=== PATIENT | male | born 1955 | race Caucasian/White ===

== ENCOUNTER → 2018-06-14 | Outpatient (CLI) | END | disposition home or self-care (01) ==

== ENCOUNTER → 2018-08-27 | Outpatient (CLI) | END | disposition home or self-care (01) ==

== ENCOUNTER 2019-06-25 19:07 | Inpatient (IN) | payer MEDICARE, OTHER ==
[~2019-06-25] VITALS: Ht 165.1 cm; Wt 70.9 kg
[~2019-06-25 19:07] MED LIST: ACET325T33 PO; ASPI325T32 PO; ATOR20TA65 PO; BACL10TA PO; BISA5TAB6 PO; CHLO473M4 MT; DOCU-159 PO; ENOX40DI2 SC; FAMO20TA18 PO; FURO40TA4 PO; GABA100C14 PO; GLIP-160 PO; HYDR-3672 PO; HYDR-842 PO; IBUP-1561 PO; IPRA3AMP29 HHN; LANT3I SC; METF100010 PO; NA P133E3 PR; NOVO3I SC; PERCOCET PO; PHEN177S47 MT; POLY17PO6 PO; ZOLP5TAB PO
[2019-06-25] MEDS ORDERED: ACETAMINOPHEN 325 MG TAB PO STA (19:21)
[2019-06-25] MEDS ORDERED: SODIUM CHLORIDE 0.9% 1L BAG IV* STA (19:21)
[2019-06-25 19:24] VITALS: Ht 165.1 cm; Wt 70.9 kg
[2019-06-25] MEDS ORDERED: VANCOMYCIN 1 GM (PMX) 250 ML IVPB ONE (19:30)
[2019-06-25] MEDS ORDERED: LEVOFLOXACIN 750MG/D5W (PMX) 150 ML IVPB ONE (19:30)
--- NOTE | 2019-06-25 19:32 | ERD ---
ER Documentation Chief Complaint Chief Complaint BIB RA from [facility] NF: fever wo relief p tylenol; hx UTI p 7d abx HPI 63-year-old male history of hypertension, diabetes mellitus type 2, CVA with right residual weakness, CABG and aortic valve replacement presents to the ED via ambulance from [facility] for evaluation of a 1 day history of fever. Patient just completed a 7-day course of antibiotics for urinary tract infection. Patient denies chest pain, palpitations, shortness of breath or cough. No abdominal pain, nausea, vomiting, diarrhea or constipation. No headache or neck pain. ROS All systems reviewed and are negative except as per history of present illness. Medications Home Meds Active Scripts Zolpidem Tartrate (Ambien Jovon) 5 Mg Tablet, 5 MG PO HS PRN for INSOMNIA for 28 Days, TAB Prov:TELMA GRIFFITHS MD 11/19/16 Polyethylene Glycol* (Miralax*) 17 Gm Powd.pack, 8.5 GM PO DAILY for 28 Days Prov:TELMA GRIFFITHS MD 11/19/16 Phenol (Sore Throat Jewell) 177 Ml Jewell, 2 SPRAY MT Q4 PRN for SORE THROAT for 28 Days, SPRAY Prov:TELMA GRIFFITHS MD 11/19/16 Oxycodone Hcl/Acetaminophen (Percocet) 1 Tab Tab, 1 TAB PO Q4H PRN for PAIN for 28 Days, TAB Prov:TELMA GRIFFITHS MD 11/19/16 Na Phos,M-B/Na Phos,Di-Ba (Kym Ready To Use Enema) 133 Ml Enema, 133 ML NC DAILY PRN for CONSTIPATION for 14 Days, ENEMA Prov:TELMA GRIFFITHS MD 11/19/16 Ipratropium-Albuterol (Ipratropium-Albuterol) 0.5-3 Mg/3 Ml Ampul.neb, 3 ML HHN Q4H RESP THERAPY PRN for SHORTNESS OF BREATH for 28 Days Prov:TELMA GRIFFITHS MD 11/19/16 Insulin Glargine* (Lantus*) 100 Unit/Ml Soln, 15 UNIT SC HS for 28 Days Prov:TELMA GRIFFITHS MD 11/19/16 Insulin Aspart* (Novolog Insulin Pen*) 100 Unit/Ml Soln, 4 UNIT SC WITH MEALS for 28 Days Prov:TELMA GRIFFITHS MD 11/19/16 Hydralazine Hcl* (Hydralazine Hcl*) 50 Mg Tab, 50 MG PO Q8 for 30 Days, TAB Prov:TELMA GRIFFITHS MD 11/19/16 Furosemide* (Furosemide*) 40 Mg Tablet, 40 MG PO DAILY@06 for 28 Days, TAB Prov:TELMA GRIFFITHS MD 11/19/16 Famotidine* (Famotidine*) 20 Mg Tablet, 20 MG PO DAILY for 28 Days, TAB Prov:TELMA GRIFFITHS MD 11/19/16 Enoxaparin Sodium* (Enoxaparin Sodium*) 40 Mg/0.4 Ml Syringe, 40 MG SC DAILY for 28 Days Prov:TELMA GRIFFITHS MD 11/19/16 Chlorhexidine Gluconate (Peridex) 473 Ml Mouthwash, 15 ML MT Q12 for 28 Days, BOTTLE Prov:TELMA GRIFFITHS MD 11/19/16 Bisacodyl* (Bisacodyl*) 5 Mg Tablet.dr, 5 MG PO BID for 28 Days Prov:TELMA GRIFFITHS MD 11/19/16 Atorvastatin Calcium (Atorvastatin Calcium) 20 Mg Tablet, 20 MG PO HS for 28 Days, TAB Prov:TELMA GRIFFITHS MD 11/19/16 Aspirin (Aspir-Renée) 325 Mg Tablet.dr, 325 MG PO DAILY for 28 Days Prov:TELMA GRIFFITHS MD 11/19/16 Acetaminophen* (Tylenol*) 325 Mg Tablet, 650 MG PO Q6H PRN for PAIN AND OR ELEVATED TEMP for 7 Days, TAB Prov:TELMA GRIFFITHS MD 11/19/16 Reported Medications Hydroxyzine Hcl* (Atarax*) 25 Mg Tab, 10 MG PO PC MEALS BEDTIME, TAB 11/07/16 Glipizide XL* (Glipizide XL*) 5 Mg Tabsr, 5 MG PO DAILY, TAB 11/07/16 Gabapentin* (Gabapentin*) 100 Mg Capsule, 100 MG PO QHS, #90 CAP 11/07/16 Ibuprofen* (Motrin*) 400 Mg Tab, 400 MG PO Q4 PRN for PAIN, TAB 08/20/15 Docusate Sodium* (Docusate Sodium*) 100 Mg Capsule, 100 MG PO DAILY, CAP 08/20/15 Baclofen* (Baclofen*) 10 Mg Tablet, 10 MG PO DAILY, TAB 08/20/15 Metformin Hcl* (Metformin Hcl*) 1,000 Mg Tablet, 1000 MG PO BID, TAB 08/20/15 Allergies Allergies: Coded Allergies: Penicillins (Verified Allergy, Intermediate, HIVES, 11/07/16) PMhx/Soc Reviewed in chart. As per HPI. History of Surgery: Yes (s/p aortic valve replacement for critical aortic stenosis) Anesthesia Reaction: No Hx Neurological Disorder: Yes (Stroke w R sided paralysis) Hx Respiratory Disorders: No Hx Cardiac Disorders: Yes (HTN,HLP, CAD, AORTIC STENOSIS) Hx Psychiatric Problems: No Hx Miscellaneous Medical Probl: Yes (HTN, dyslipidemia, CAD, bradycardia, CVAx2) Hx Alcohol Use: No Hx Substance Use: No Hx Tobacco Use: No Smoking Status: Never smoker FmHx No family history relevant to presenting complaint Physical Exam Vitals Vital Signs Date Temp Pulse Resp B/P (MAP) Pulse Ox O2 O2 Flow FiO2 Time Delivery Rate 06/25/19 98.9 55 18 100/45 100 Room Air 23:06 (63) 06/25/19 85 23 130/57 100 Room Air 21:00 (81) 06/25/19 102.2 19:36 06/25/19 102.2 99 20 170/80 99 19:24 (110) Physical Exam Const: Alert, moderate distress. Head: Atraumatic Eyes: Normal Conjunctiva ENT: Normal External Ears, Nose and Mouth. Neck: Full range of motion. No meningismus. No JVD. Resp: Breath sounds equal bilaterally without rales rhonchi or wheezes. Cardio: Regular rate and rhythm, 3/6 systolic murmur. Chest Wall: Status post median sternotomy. Nontender. Abd: Soft, non tender, non distended. Normal bowel sounds Skin: No petechiae or rashes. No decubiti. Back: No midline or flank tenderness Ext: No cyanosis, or edema Neur: Awake and alert. Right hemiparesis. Psych: Normal Mood and Affect Result Diagram: 06/25/19193306/25/191933 Results 24 hrs Laboratory Tests Test 06/25/19 19:30 06/25/19 19:34 06/25/19 21:39 06/25/19 23:22 POC Venous Lactate 1.6 mmol/L White Blood Count 13.0 10^3/ul Red Blood Count 4.92 10^6/ul Hemoglobin 12.7 g/dl Hematocrit 39.6 % Mean Corpuscular 80.5 fl Volume Mean Corpuscular 25.8 pg Hemoglobin Mean Corpuscular 32.1 g/dl Hemoglobin Concent Red Cell 17.3 % Distribution Width Platelet Count 213 10^3/UL Mean Platelet 10.6 fl Volume Immature 0.300 % Granulocytes % Neutrophils % 90.2 % Lymphocytes % 4.0 % Monocytes % 5.2 % Eosinophils % 0.0 % Basophils % 0.3 % Nucleated Red Blood 0.0 /100WBC Cells % Immature 0.040 10^3/ul Granulocytes # Neutrophils # 11.7 10^3/ul Lymphocytes # 0.5 10^3/ul Monocytes # 0.7 10^3/ul Eosinophils # 0.0 10^3/ul Basophils # 0.0 10^3/ul Nucleated Red Blood 0.0 10^3/ul Cells # Prothrombin Time 12.9 Sec Prothrombin Time 1.0 Ratio INR International 0.96 Normalized Ratio Activated 30.4 Sec Partial Thromboplas t Time Sodium Level 134 mmol/L Potassium Level 4.0 mmol/L Chloride Level 97 mmol/L Carbon Dioxide 26 mmol/L Level Anion Gap 11 Blood Urea Nitrogen 27 mg/dl Creatinine 1.07 mg/dl Est Glomerular > 60 mL/min Filtrat Rate mL/min Glucose Level 128 mg/dl Calcium Level 9.4 mg/dl Total Bilirubin 0.9 mg/dl Direct Bilirubin 0.00 mg/dl Indirect Bilirubin 0.9 mg/dl Aspartate Amino 32 IU/L Transf (AST/SGOT) Alanine 33 IU/L Aminotransferase (A LT/SGPT) Alkaline 108 IU/L Phosphatase Troponin I 0.018 ng/ml Total Protein 8.0 g/dl Albumin 4.1 g/dl Globulin 3.90 g/dl Albumin/Globulin 1.05 Ratio Urine Color YELLOW Urine Clarity CLEAR Urine pH 5.0 Urine Specific 1.006 [place] Urine Ketones TRACE mg/dL Urine Nitrite NEGATIVE mg/dL Urine Bilirubin NEGATIVE mg/dL Urine Urobilinogen NEGATIVE mg/dL Urine Leukocyte NEGATIVE Jen/ul Esterase Urine Microscopic 3 /HPF RBC Urine Microscopic 0 /HPF WBC Urine Bacteria FEW /HPF Urine Hemoglobin 1+ mg/dL Urine Glucose NEGATIVE mg/dL Urine Total Protein 2+ mg/dl Lactic Acid Level 0.9 mmol/L 0.8 mmol/L Current Medications Medications Dose Sig/Divya Start Time Status Last (Trade) Ordered Route PRN Stop Time Admin Dose Reason Admin Sodium 2,130 ml BOLUS OVER 2 06/25/19 DC 06/25/19 Chloride HOURS STAT 19:21 06/25/19 19:36 (NS) IV* 19:28 650 mg ONCE STAT 06/25/19 DC 06/25/19 Acetaminophen PO 19:21 06/25/19 19:36 (Tylenol 19:29 Tab) Vancomycin 250 ml @ ONCE ONCE 06/25/19 DC 06/25/19 HCl 125 mls/hr IVPB 19:30 06/25/19 20:40 21:29 150 ml @ ONCE ONCE 06/25/19 DC 06/25/19 Levofloxacin/ 100 mls/hr IVPB 19:30 06/25/19 19:36 Dextrose 20:59 Ondansetron 4 mg BRIDGE ORDER 06/25/19 HCl (Zofran PRN IV 23:30 06/26/19 Inj) NAUSEA/VOMITI 23:29 NG 650 mg ER BRIDGE 06/25/19 Acetaminophen PRN PO 23:30 06/26/19 (Tylenol .MILD PAIN 23:29 Tab) 1-3 OR TEMP Procedures/MDM DOCUMENTS REVIEWED: ED nurse, prior ED, prior records, half-way facility records EKG: Time: 1825. Sinus tachycardia. Ventricular rate 101. LVH. No acute ST elevation or depression. No ectopy. My Interpretation IMAGING: Chest AP portable: The cardiac silhouette is normal. The costophrenic angles are clear. No effusions or infiltrates. Status post median sternotomy. MEDICAL DECISION MAKIN-year-old male history of hypertension, diabetes mellitus type 2, CVA with right residual weakness, CABG and aortic valve replacement presents to the ED via ambulance from [facility] for evaluation of a 1 day history of fever. CBC reveals leukocytosis and mild anemia mental thrombocytopenia. Chemistry shows mild hyponatremia and elevated BUN but no other electrolyte abnormalities or hyperglycemia. Lactate is not elevated. Urinalysis shows no signs of urinary tract infection although patient just completed a course of antibiotics. Chest x-ray negative for CHF or pneumonia. EKG shows no evidence of ischemia or dysrhythmia. Patient presents with fever and tachycardia consistent with systemic inflammatory response syndrome. Normal saline 30 cc/kg fluid bolus was given and broad-spectrum antibiotics after cultures. No source of infection was identified but cultures are pending. Lactate was not elevated or consistent with severe sepsis or septic shock. No hypotension. Patient status post aortic valve replacement and endocarditis is considered. Abdominal exam is completely benign without tenderness, rebound, guarding, signs of peritonitis or an occult intra-abdominal source and CT is deferred. Admit to [facility] for further evaluation and management. PATIENT CARE TRANSITIONED: Time: 22:20, Dr. Le. Counseled patient and family regarding diagnosis, diagnostic results and plan for admission. 23:40: Patient's heart rate dropped to 49. Repeat EKG reveals sinus rhythm with second-degree AV block Mobitz 1 with occasional PVCs. Asymptomatic. Will upgrade to telemetry. Departure Diagnosis: Primary Impression: Fever Fever type: unspecified Qualified Codes: R50.9 - Fever, unspecified Additional Impressions: Diabetes mellitus type 2 in nonobese Status post aortic valve replacement History of cerebrovascular accident with residual deficit Bradycardia Condition: Serious ENMANUEL BLAKE MD Jun 25, 2019 19:32
[2019-06-25] MEDS ORDERED: ACETAMINOPHEN 325 MG TAB PO PRN (23:30)
[2019-06-25] MEDS ORDERED: ONDANSETRON 4 MG INJ IV PRN (23:30)
[2019-06-26] MEDS ORDERED: ACETAMINOPHEN 325 MG TAB PO PRN ×2 (01:00)
[2019-06-26] MEDS ORDERED: ALBUTEROL/IPRATROPIUM (NEB) 3 ML AMP HHN PRN (01:00)
[2019-06-26] MEDS ORDERED: IBUPROFEN 400 MG TAB PO PRN (01:00)
[2019-06-26] MEDS ORDERED: ZOLPIDEM 5 MG TAB PO PRN (01:00)
[2019-06-26] MEDS ORDERED: ACETAMINOPHEN 650 MG SUPP PR PRN (01:00)
[2019-06-26] MEDS ORDERED: NACL 0.9% 3 ML SYG IV SCH (01:00)
[2019-06-26] MEDS ORDERED: DOCUSATE SODIUM 100 MG CAP PO PRN (01:00)
[2019-06-26] MEDS: ACCU-CHEK XX SCH (02:28)
[2019-06-26] MEDS: SOD CHLORIDE 0.45% 1,000 ML IV SCH ×3 (04:21→23:53)
--- NOTE | 2019-06-26 05:51 | QN ---
Documentation Comment This patient was seen and evaluated by prior physician and was admitted to the hospital for fever and possible CHF. The patient was tachycardic originally however I was notified that the patient started to become bradycardic. A repeat EKG was obtained and does show a Mobitz type I AV block. The patient did have a heart rate of 44 bpm. His blood pressure is stable with a mean arterial pressure greater than 65. The patient is easily arousable and when he is awake his blood pressure is normal and heart rate is greater than 60 bpm. This information was related to his admitting physician Dr. Orlando who would like cardiology on consult. I have contacted Dr. Vazquez and have reviewed the EKG and she states she will consult on the patient. The patient will be upgraded to the intensive care unit. This patient has remained hemodynamically stable at this time with no need for immediate intervention. TISHA BELTRAN DO Jun 26, 2019 05:51
[2019-06-26] MEDS ORDERED: PANTOPRAZOLE 40 MG INJ IV SCH (06:00)
[2019-06-26] MEDS: INSULIN ASPART [NOVOLOG] 3 ML PEN SC SCH ×4 (08:00→20:54)
[2019-06-26] MEDS ORDERED: INSULIN GLARGINE [LANTus] (100 UNITS/ML) SYG SC SCH ×4 (08:00)
[2019-06-26] MEDS: BISACODYL (EC) 5 MG TAB PO SCH ×2 (08:23→20:39)
[2019-06-26] MEDS: DOCUSATE SODIUM 100 MG CAP PO SCH (08:23)
[2019-06-26] MEDS: POLYETHYLENE GLYCOL 17 GM PACKET PO SCH (08:26)
[2019-06-26] MEDS: PANTOPRAZOLE (EC) 40 MG TAB PO SCH (08:53)
[2019-06-26] MEDS: ENOXAPARIN 40 MG/0.4 ML SYG SC SCH (08:54)
[2019-06-26] MEDS: ASPIRIN (EC) 325 MG TAB PO SCH (08:54)
[2019-06-26] MEDS: hydrOXYzine HCL 10 MG TAB PO SCH ×4 (08:54→20:39)
[2019-06-26] MEDS: FAMOTIDINE 20 MG TAB PO SCH (08:55)
[2019-06-26] MEDS ORDERED: LEVOFLOXACIN 500MG/D5W (PMX) 100 ML IVPB SCH (09:00)
--- NOTE | 2019-06-26 14:56 | CONS ---
DATE OF ADMISSION: 06/25/2019 DATE OF CONSULTATION: 06/26/2019 REFERRED BY: Dr. Guerrero. This is a 63-year-old male well known to Dr. Hui from his office, who presented to the hospital w ith past medical history of CAD status post CABG and aortic valve replacement, hypertension, hyperlip idemia, diabetes, CVA with residual right-sided weakness, who presented to the hospital complaining o f fevers. He had recently completed a 7-day course of antibiotics for a UTI. While in the emergency department, he was found to have significant bradycardia with heart rates as low as the 30s and EKG and telemetry showed that he was in a second-degree type 1 AV block. Patient denies having any chest pain, palpitations, lightheadedness, dizziness, presyncope or syncope. He admits to having some oswaldo rtness of breath, but denies having a cough. REVIEW OF SYSTEMS: A 12-point review of systems negative except as per HPI. PAST MEDICAL HISTORY: As above. PAST SURGICAL HISTORY: Status post CABG and aortic valve replacement. FAMILY HISTORY: Unremarkable. SOCIAL HISTORY: The patient denies alcohol, tobacco or illicit drug use. ALLERGIES: PENICILLIN. HOME MEDICATIONS: As per medical record. PHYSICAL EXAMINATION: VITAL SIGNS: Temperature 98.4, blood pressure 157/75, heart rate 74, respiratory rate 22, O2 sat 98% on room air. GENERAL: Well-developed, well-nourished, obese, no acute distress. HEENT: Normocephalic, atraumatic. Pupils equal, round, reactive to light and accommodation. Dry mu cous membranes. Clear sclerae. NECK: Supple. No lymphadenopathy. HEART: Sinus bradycardia with regular rhythm, grade II/IV systolic murmur, mechanical aortic valve c lick appreciated, S1, S2, no S3, S4, or no JVD, no carotid bruits. LUNGS: Clear to auscultation bilaterally. No wheezes, crackles, or rhonchi. Nonlabored breathing. ABDOMEN: Soft, nontender, nondistended. Normoactive bowel sounds. EXTREMITIES: Warm and dry. No clubbing, cyanosis, or edema, 2+ radial, dorsalis pedis and posterior pulses bilaterally. NEUROLOGIC: Alert and oriented x3, right-sided weakness, status post remote stroke. LABORATORY DATA: Significant for WBC of 13.0, hemoglobin 12.7. Sodium 134, potassium 4.0, creatinin e 1.07. Estimated GFR greater than 60. Lactic acid within normal limits. Troponin negative x1. PT /INR within normal limits. IMAGING: Chest x-ray, no evidence of active cardiopulmonary disease. Initial EKG 06/25/2019 at 2345 showed sinus bradycardia with second-degree type 1 AV block with frequent PVCs, left axis deviation, most likely due to LAFB and IVCD possibly an incomplete left bundle branch block. Telemetry also sh owed sinus bradycardia with PVCs and a first, second, second-degree type 2 AV block with heart rates as low as 30s averaging in the 50s. ASSESSMENT AND PLAN: 1. Sinus bradycardia, second-degree type 1 atrioventricular block, heart rate as low as 30, asymptom atic. 2. Fevers and leukocytosis. Infectious workup started. 3. Recent urinary tract infection. 4. Coronary artery disease, status post coronary artery bypass graft. 5. History of aortic valve replacement. 6. Hypertension, uncontrolled. 7. Hyperlipidemia. 8. Diabetes. 9. History of cerebrovascular accident with residual right-sided weakness. RECOMMENDATIONS: 1. Admit to telemetry. 2. Next hold all AV arlyn blockers. 3. Monitor electrolytes to keep potassium greater than 4, magnesium greater than 2. 4. Continue aspirin and statin therapy. 5. Infectious workup. 6. Check TSH. 7. We will check to see if there was a recent echocardiogram done in the office with no recent echo done. We will order a repeat echo. Further recommendations to follow. Thank you for this consultation and allowing me to participate in the care of this patient. Dictated By: JUAN CARLOS MILLARD/SANDIP Conf#: [id number] DID#: [id number] CC: TISHA GUERRERO DO;*EndCC*
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
[2019-06-26] MEDS: LEVOFLOXACIN 500MG/D5W (PMX) 100 ML IVPB SCH (18:02)
[2019-06-26] MEDS: ATORVASTATIN 20 MG TAB PO SCH (20:36)
[2019-06-27] VITALS (23 sets, daily range): BP systolic 121–180; BP diastolic 47–104; PULSE 49–83; RESP 14–33
[2019-06-27] MEDS: ACCU-CHEK XX SCH (02:00)
[2019-06-27] MEDS: PANTOPRAZOLE (EC) 40 MG TAB PO SCH (06:07)
[2019-06-27] MEDS: INSULIN ASPART [NOVOLOG] 3 ML PEN SC SCH ×4 (07:35→21:00)
[2019-06-27] MEDS: BISACODYL (EC) 5 MG TAB PO SCH ×2 (08:45→21:06)
[2019-06-27] MEDS: FAMOTIDINE 20 MG TAB PO SCH (08:45)
[2019-06-27] MEDS: DOCUSATE SODIUM 100 MG CAP PO SCH (08:46)
[2019-06-27] MEDS: ASPIRIN (EC) 325 MG TAB PO SCH (08:46)
[2019-06-27] MEDS: hydrOXYzine HCL 10 MG TAB PO SCH ×4 (08:46→21:06)
[2019-06-27] MEDS: POLYETHYLENE GLYCOL 17 GM PACKET PO SCH (08:46)
[2019-06-27] MEDS: ENOXAPARIN 40 MG/0.4 ML SYG SC SCH (08:52)
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
--- NOTE | 2019-06-27 10:35 | CONS ---
Assessment/Plan Assessment/Plan Hospital Course (Demo Recall) IMP: 1.bradycardia- to 30-40's with wenkebach, more recently with episode 2:1 AVB. Now in icu. NL TSH 2.HTN-unocntrolled 3.HL 4.H/O AVR nioprosthesis 2015 5.H/O Cabg x 1 2015 6. H/O CVA 7. Fevers Recc: -ICU -F/U cx data and continue abx's -continue asa/statin -resume baseline hydralazine to improve BP control -will f/u echo -complete alejandra -Eval for PPM as necessary Consultation Date/Type/Reason Admit Date/Time Jun 26, 2019 at 06:42 Initial Consult Date 06/26/19 Type of Consult Cardiology Reason for Consultation bradycardia Requesting Provider: GRAEME VIEIRA MD Date/Time of Note DATE: 06/27/19 TIME: 10:27 Exam/Review of Systems Vital Signs Vitals Vital Signs Date Temp Pulse Resp B/P (MAP) Pulse Ox O2 O2 Flow FiO2 Time Delivery Rate 06/27/19 81 23 174/88 98 Room Air 09:00 (116) 06/27/19 98.0 08:00 06/26/19 2.0 18:20 Intake and Output 06/26/19 06/26/19 06/27/19 1515:00 23:00 07:00 IntakeIntake Total 720 ml OutputOutput Total 950 ml 400 ml 850 ml BalanceBalance -950 ml -400 ml -130 ml Exam Exam Review of Systems: CONSTITUTIONAL: No fevers, chills. PULMONARY: No sob CARDIOVASCULAR: No chest pain/palpitations GASTROINTESTINAL: No nausea/vomiting. GENITOURINARY: No hematuria/dysuria. MUSCULOSKELETAL: No myagias/arthalgias. PSYCHIATRIC: The patient denies depression. NEUROLOGIC: No weakness Constitutional: alert, oriented Psych: no complaints Head: normocephalic ENMT: mucosa pink and moist Neck: supple, jvd (9 cm water) Respiratory: clear to auscultation Cardiovascular: regular rate and rhythm Gastrointestinal: soft, non-tender Musculoskeletal: muscle tone (normal) Extremities: edema (none) Neurological: other (No focal deficits) Labs Result Diagram: 06/27/19 0453 06/27/19 0453 Results 24hrs Laboratory Tests Test 06/26/19 14:46 06/26/19 16:35 06/26/19 18:27 06/27/19 04:53 Bedside Glucose 93 120 Troponin I < 0.012 White Blood Count 6.7 # Red Blood Count 4.37 L Hemoglobin 11.1 L Hematocrit 35.6 L Mean Corpuscular Volume 81.5 L Mean Corpuscular 25.4 L Hemoglobin Mean Corpuscular 31.2 L Hemoglobin Concent Red Cell Distribution 17.5 H Width Platelet Count 200 Mean Platelet Volume 10.4 Immature Granulocytes % 0.300 Neutrophils % 66.7 Lymphocytes % 17.9 Monocytes % 11.6 H Eosinophils % 3.1 Basophils % 0.4 Nucleated Red Blood 0.0 Cells % Immature Granulocytes # 0.020 Neutrophils # 4.5 Lymphocytes # 1.2 Monocytes # 0.8 Eosinophils # 0.2 Basophils # 0.0 Nucleated Red Blood 0.0 Cells # Sodium Level 139 Potassium Level 3.7 Chloride Level 108 # Carbon Dioxide Level 24 Anion Gap 7 Blood Urea Nitrogen 17 # Creatinine 0.83 Est Glomerular Filtrat > 60 Rate mL/min Glucose Level 87 # Hemoglobin A1c 6.7 H Calcium Level 8.9 Iron Level 17 L Total Iron Binding 284 Capacity Percent Iron Saturation 6 L Vitamin D 1,25-Dihydroxy 28.2 L Thyroid Stimulating 1.420 Hormone (TSH) Test 06/27/19 07:56 Bedside Glucose 93 Medications Medications Current Medications Acetaminophen (Tylenol Tab) 650 mg Q6H PRN PO MILD PAIN(1-3)OR ELEVATED TEMP; Start 06/26/19 at 01:00 Aspirin (Ecotrin) 325 mg DAILY PO Last administered on 06/27/19at 08:46; Admin Dose 325 MG; Start 06/26/19 at 09:00 Atorvastatin Calcium (Lipitor) 20 mg HS PO Last administered on 06/26/19at 20:36; Admin Dose 20 MG; Start 06/26/19 at 21:00 Bisacodyl (Dulcolax) 5 mg BID PO Last administered on 06/27/19at 08:45; Admin Dose 5 MG; Start 06/26/19 at 09:00 Docusate Sodium (Colace) 100 mg DAILY PO Last administered on 06/27/19at 08:46; Admin Dose 100 MG; Start 06/26/19 at 09:00 Famotidine (Pepcid) 20 mg DAILY PO Last administered on 06/27/19 08:45; Admin Dose 20 MG; Start 06/26/19 at 09:00 Hydroxyzine HCl (Atarax) 10 mg PC MEALS BEDTIME PO Last administered on 06/27/19 08:46; Admin Dose 10 MG; Start 06/26/19 at 09:00 Ibuprofen (Motrin) 400 mg Q4 PRN PO PAIN; Start 06/26/19 at 01:00 Albuterol/ Ipratropium (Duoneb) 3 ml Q4H RESP THERAPY PRN HHN SHORTNESS OF BREATH; Start 06/26/19 at 01:00 Oxycodone/ Acetaminophen (Percocet (5/ 325)) 1 tab Q4H PRN PO PAIN; Start 06/26/19 at 01:00 Polyethylene Glycol (Miralax) 8.5 gm DAILY PO Last administered on 06/27/19at 08:46; Admin Dose 8.5 GM; Start 06/26/19 at 09:00 Zolpidem Tartrate (Ambien) 5 mg HS PRN PO INSOMNIA; Start 06/26/19 at 01:00 Sodium Chloride 1,000 ml @ 70 mls/hr [id number] IV Last administered on 06/26/19at 23:53; Admin Dose 70 MLS/HR; Start 06/26/19 at 01:00 IV Flush (NS 3 ml) 3 ml PER PROTOCOL IV ; Start 06/26/19 at 01:00 Acetaminophen (Tylenol Tab) 650 mg Q6H PRN PO .PAIN 1-3 OR TEMP; Start 06/26/19 at 01:00 Acetaminophen (Tylenol Supp) 650 mg Q6H PRN [place] .PAIN 1-3 OR TEMP; Start 06/26/19 at 01:00 Docusate Sodium (Colace) 100 mg Q12H PRN PO .CONSTIPATION; Start 06/26/19 at 01:00 Enoxaparin Sodium (Lovenox) 40 mg DAILY SC Last administered on 06/27/19at 08:52; Admin Dose 40 MG; Start 06/26/19 at 09:00 Pantoprazole (Protonix Tab) 40 mg DAILY@06 PO Last administered on 06/27/19at 06:07; Admin Dose 40 MG; Start 06/26/19 at 06:00 Diagnostic Test (Pha) (Accu-Chek) 1 ea 02 XX Last administered on 06/26/19at 02:28; Admin Dose 1 EA; Start 06/26/19 at 02:00 Insulin Aspart (Novolog Insulin Pen) NOVOLOG *MILD* ALGORITHM WITH MEALS BEDTIME SC ; Start 06/26/19 at 08:00 Levofloxacin/ Dextrose 100 ml @ 100 mls/hr Q24H IVPB Last administered on 06/26/19at 18:02; Admin Dose 100 MLS/HR; Start 06/26/19 at 18:00 Hydralazine HCl (Apresoline) 10 mg Q6H PRN IV ELEVATED BLOOD PRESSURE; Start 06/27/19 at 10:30 JORGE TRIPATHI Jun 27, 2019 10:35
[2019-06-27] MEDS: hydrALAzine 20 MG INJ IV PRN (11:22)
--- NOTE | 2019-06-27 16:04 | RADRPT ---
Echocardiogram Report Patient Name: ANGEL BERGPatient ID: [id number] : 1955 (64y )Study Date: 06/27/2019 9:46:10 AM Gender: MAccession #: [id number] Tech: Montez Saenz [facility] Location: [address] Ref.Physician: TELMA GRIFFITHS Height(Cm): BSA: Weight(Kg): Quality: AdequateOrder Physician: TELMA GRIFFITHS Account #: Procedures: Echocardiographic Report: Transthoracic echocardiogram with complete 2D, M-Mode, and doppler examination. Indications: Coronary Artery Disease. Measurements: 2D/M Mode Doppler Measurement Value Normal Range Measurement Value Normal Range LVIDd 2D 4.1 [ 4.2 - 5.8 ] cm AV Mean [place] 2.3 [ 70.0 - 90.0 ] cm/sec LVIDs 2D 2.6 [ 2.5 - 4.0 ] cm AV Mean PG 25.0 [ 2.0 - 4.0 ] mmHg LVPWd 2D 1.4 [ 0.6 - 1.0 ] cm AV VTI 76.9 cm IVSd 2D 1.4 [ 0.6 - 1.0 ] cm LVOT Peak [place] 1.2 [ 70.0 - 110.0 ] cm/sec AoR Diam 2D 2.9 [ 2.6 - 3.4 ] cm LVOT Peak PG 6.0 [ 2.0 - 6.0 ] mmHg EDV 2D 74.7 [ 62.0 - 150.0 ] ml MV E Peak [place] 0.9 [ 60.0 - 130.0 ] cm/sec ESV 2D 25.6 [ 21.0 - 61.0 ] ml MV A Peak [place] 1.1 [ 100.0 - 120.0 ] cm/sec EF 2D 65.7 [ 52.0 - 72.0 ] percent MV E/A 0.8 [ 0.8 - 1.5 ] ratio LA Dimen 2D 3.7 [ 3.0 - 4.0 ] cm MV Decel Time 243 [ 104 - 258 ] msec Lat E` [place] 0.1 [ 10.0 - 15.0 ] cm/sec Lateral E/E` 9.1 [ 1.0 - 2.0 ] ratio Med E` [place] 0.1 cm/sec MV E/A 0.8 [ 0.8 - 1.5 ] ratio TR Peak [place] 3.0 [ 100.0 - 280.0 ] cm/sec TR Peak PG 37.0 mmHg RVSP 40.0 [ 10.0 - 36.0 ] mmHg Findings: Left Ventricle: Normal left ventricular systolic function. Normal left ventricular cavity size. Moderate concentric left ventricular hypertrophy. Ejection fraction is visually estimated at 55-60 %. Tissue Doppler/Mitral Doppler indices are consistent with impaired relaxation (Stage I diastolic dysfunction). Right Ventricle: Normal right ventricular size. Normal right ventricular systolic function. Left Atrium: The left atrium is normal in size. Right Atrium: The right atrium is normal in size. Mitral Valve: Mild mitral leaflet calcification. Mild mitral annular calcification. Trace mitral regurgitation. Aortic Valve: Aortic Valve Bio Prosthesis. Gradients abnormal for valve type and size. Aortic valve Max velocity 3.47 m/sec. Max PG 48.20 mmHg. Mean PG 25.00 mmHg. No aortic regurgitation. Tricuspid Valve: Normal appearance of the tricuspid valve. The estimated Peak RVSP is 40 mmHg. There is mild tricuspid regurgitation. Pericardium: Normal pericardium with no significant pericardial effusion. Left pleural effusion seen. Aorta: Normal aortic root. IVC: Normal size and normal respiratory collapse consistent with normal right atrial pressure. Conclusions: Normal left ventricular systolic function. Normal left ventricular cavity size. Moderate concentric left ventricular hypertrophy. Ejection fraction is visually estimated at 55-60 %. Tissue Doppler/Mitral Doppler indices are consistent with impaired relaxation (Stage I diastolic dysfunction). Mild mitral leaflet calcification. Mild mitral annular calcification. Trace mitral regurgitation. Aortic Valve Bio Prosthesis. Gradients abnormal for valve type and size. Aortic valve Max velocity 3.47 m/sec. Max PG 48.20 mmHg. Mean PG 25.00 mmHg. No aortic regurgitation. Normal appearance of the tricuspid valve. The estimated Peak RVSP is 40 mmHg. There is mild tricuspid regurgitation. Normal pericardium with no significant pericardial effusion. Left pleural effusion seen. Electronically Signed By: Patrick Hui 2019-06-27 16:04:00 PDT
[2019-06-27] MEDS: LEVOFLOXACIN 500MG/D5W (PMX) 100 ML IVPB SCH (17:42)
[2019-06-27] MEDS: SOD CHLORIDE 0.45% 1,000 ML IV SCH (17:42)
[2019-06-27] MEDS: ATORVASTATIN 20 MG TAB PO SCH (21:05)
[2019-06-28] VITALS (23 sets, daily range): BP systolic 122–189; BP diastolic 52–91; PULSE 40–96; RESP 12–28
[2019-06-28] MEDS: ACCU-CHEK XX SCH (02:00)
[2019-06-28] MEDS: PANTOPRAZOLE (EC) 40 MG TAB PO SCH (06:12)
[2019-06-28] MEDS: INSULIN ASPART [NOVOLOG] 3 ML PEN SC SCH ×4 (07:35→20:57)
[2019-06-28] MEDS: ASPIRIN (EC) 325 MG TAB PO SCH (08:43)
[2019-06-28] MEDS: hydrOXYzine HCL 10 MG TAB PO SCH ×4 (08:44→20:56)
[2019-06-28] MEDS: FAMOTIDINE 20 MG TAB PO SCH (08:44)
[2019-06-28] MEDS: ENOXAPARIN 40 MG/0.4 ML SYG SC SCH (08:59)
[2019-06-28] MEDS: DOCUSATE SODIUM 100 MG CAP PO SCH (09:00)
[2019-06-28] MEDS: BISACODYL (EC) 5 MG TAB PO SCH ×3 (09:00→21:00)
[2019-06-28] MEDS: POLYETHYLENE GLYCOL 17 GM PACKET PO SCH ×2 (09:00→11:54)
[2019-06-28] MEDS: SOD CHLORIDE 0.45% 1,000 ML IV SCH (09:01)
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
--- NOTE | 2019-06-28 10:37 | CONS ---
Consult Date/Type/Reason Admit Date/Time Jun 26, 2019 at 06:42 Initial Consult Date Requesting Provider: GRAEME VIEIRA MD Date/Time of Note DATE: 06/28/19 TIME: 10:37 Subjective Pacer scheduled 7 30 am - full note dictated - thank you Objective Vitals Vital Signs Date Temp Pulse Resp B/P (MAP) Pulse Ox O2 O2 Flow FiO2 Time Delivery Rate 06/28/19 85 22 160/91 99 10:00 (114) 06/28/19 98.0 Room Air 08:00 06/28/19 2.0 27 00:30 Intake and Output 06/27/19 06/27/19 06/28/19 1515:00 23:00 07:00 IntakeIntake Total 1040 ml 640 ml 470 ml OutputOutput Total 900 ml 650 ml 850 ml BalanceBalance 140 ml -10 ml -380 ml Results/Medications Result Diagram: 06/27/19 0453 06/27/19 0453 Results 24 hrs Laboratory Tests Test 06/27/19 11:00 06/27/19 11:16 06/27/19 17:28 06/28/19 08:49 Troponin I < 0.012 Bedside Glucose 120 117 137 Home Meds Active Scripts Zolpidem Tartrate (Ambien Jovon) 5 Mg Tablet, 5 MG PO HS PRN for INSOMNIA for 28 Days, TAB Prov:TELMA GRIFFITHS MD 11/19/16 Polyethylene Glycol* (Miralax*) 17 Gm Powd.pack, 8.5 GM PO DAILY for 28 Days Prov:TELMA GRIFFITHS MD 11/19/16 Phenol (Sore Throat Puposky) 177 Ml Puposky, 2 SPRAY MT Q4 PRN for SORE THROAT for 28 Days, SPRAY Prov:TELMA GRIFFITHS MD 11/19/16 Oxycodone Hcl/Acetaminophen (Percocet) 1 Tab Tab, 1 TAB PO Q4H PRN for PAIN for 28 Days, TAB Prov:TELMA GRIFFITHS MD 11/19/16 Na Phos,M-B/Na Phos,Di-Ba (Kym Ready To Use Enema) 133 Ml Enema, 133 ML SC DAILY PRN for CONSTIPATION for 14 Days, ENEMA Prov:TELMA GRIFFITHS MD 11/19/16 Ipratropium-Albuterol (Ipratropium-Albuterol) 0.5-3 Mg/3 Ml Ampul.neb, 3 ML HHN Q4H RESP THERAPY PRN for SHORTNESS OF BREATH for 28 Days Prov:TELMA GRIFFITHS MD 11/19/16 Insulin Glargine* (Lantus*) 100 Unit/Ml Soln, 15 UNIT SC HS for 28 Days Prov:TELMA GRIFFITHS MD 11/19/16 Insulin Aspart* (Novolog Insulin Pen*) 100 Unit/Ml Soln, 4 UNIT SC WITH MEALS for 28 Days Prov:TELMA GRIFFITHS MD 11/19/16 Hydralazine Hcl* (Hydralazine Hcl*) 50 Mg Tab, 50 MG PO Q8 for 30 Days, TAB Prov:TELMA GRIFFITHS MD 11/19/16 Furosemide* (Furosemide*) 40 Mg Tablet, 40 MG PO DAILY@06 for 28 Days, TAB Prov:TELMA GRIFFITHS MD 11/19/16 Famotidine* (Famotidine*) 20 Mg Tablet, 20 MG PO DAILY for 28 Days, TAB Prov:TELMA GRIFFITHS MD 11/19/16 Enoxaparin Sodium* (Enoxaparin Sodium*) 40 Mg/0.4 Ml Syringe, 40 MG SC DAILY for 28 Days Prov:TELMA GRIFFITHS MD 11/19/16 Chlorhexidine Gluconate (Peridex) 473 Ml Mouthwash, 15 ML MT Q12 for 28 Days, BOTTLE Prov:TELMA GRIFFITHS MD 11/19/16 Bisacodyl* (Bisacodyl*) 5 Mg Tablet.dr, 5 MG PO BID for 28 Days Prov:TELMA GRIFFITHS MD 11/19/16 Atorvastatin Calcium (Atorvastatin Calcium) 20 Mg Tablet, 20 MG PO HS for 28 Days, TAB Prov:TELMA GRIFFITHS MD 11/19/16 Aspirin (Aspir-Renée) 325 Mg Tablet.dr, 325 MG PO DAILY for 28 Days Prov:TELMA GRIFFITHS MD 11/19/16 Acetaminophen* (Tylenol*) 325 Mg Tablet, 650 MG PO Q6H PRN for PAIN AND OR ELEVATED TEMP for 7 Days, TAB Prov:TELMA GRIFFITHS MD 11/19/16 Reported Medications Hydroxyzine Hcl* (Atarax*) 25 Mg Tab, 10 MG PO PC MEALS BEDTIME, TAB 11/07/16 Glipizide XL* (Glipizide XL*) 5 Mg Tabsr, 5 MG PO DAILY, TAB 11/07/16 Gabapentin* (Gabapentin*) 100 Mg Capsule, 100 MG PO QHS, #90 CAP 11/07/16 Ibuprofen* (Motrin*) 400 Mg Tab, 400 MG PO Q4 PRN for PAIN, TAB 08/20/15 Docusate Sodium* (Docusate Sodium*) 100 Mg Capsule, 100 MG PO DAILY, CAP 08/20/15 Baclofen* (Baclofen*) 10 Mg Tablet, 10 MG PO DAILY, TAB 08/20/15 Metformin Hcl* (Metformin Hcl*) 1,000 Mg Tablet, 1000 MG PO BID, TAB 08/20/15 Medications Current Medications Acetaminophen (Tylenol Tab) 650 mg Q6H PRN PO MILD PAIN(1-3)OR ELEVATED TEMP; Start 06/26/19 at 01:00 Aspirin (Ecotrin) 325 mg DAILY PO Last administered on 06/28/19at 08:43; Admin Dose 325 MG; Start 06/26/19 at 09:00 Atorvastatin Calcium (Lipitor) 20 mg HS PO Last administered on 06/27/19at 21:05; Admin Dose 20 MG; Start 06/26/19 at 21:00 Bisacodyl (Dulcolax) 5 mg BID PO Last administered on 06/27/19at 21:06; Admin Dose 5 MG; Start 06/26/19 at 09:00 Docusate Sodium (Colace) 100 mg DAILY PO Last administered on 06/27/19at 08:46; Admin Dose 100 MG; Start 06/26/19 at 09:00 Famotidine (Pepcid) 20 mg DAILY PO Last administered on 06/28/19at 08:44; Admin Dose 20 MG; Start 06/26/19 at 09:00 Hydroxyzine HCl (Atarax) 10 mg PC MEALS BEDTIME PO Last administered on 06/28/19at 08:44; Admin Dose 10 MG; Start 06/26/19 at 09:00 Ibuprofen (Motrin) 400 mg Q4 PRN PO PAIN; Start 06/26/19 at 01:00 Albuterol/ Ipratropium (Duoneb) 3 ml Q4H RESP THERAPY PRN HHN SHORTNESS OF BREATH; Start 06/26/19 at 01:00 Oxycodone/ Acetaminophen (Percocet (5/ 325)) 1 tab Q4H PRN PO PAIN; Start 06/26/19 at 01:00 Polyethylene Glycol (Miralax) 8.5 gm DAILY PO Last administered on 06/27/19 08:46; Admin Dose 8.5 GM; Start 06/26/19 at 09:00 Zolpidem Tartrate (Ambien) 5 mg HS PRN PO INSOMNIA; Start 06/26/19 at 01:00 Sodium Chloride 1,000 ml @ 70 mls/hr [id number] IV Last administered on 06/27/19 17:42; Admin Dose 70 MLS/HR; Start 06/26/19 at 01:00 IV Flush (NS 3 ml) 3 ml PER PROTOCOL IV ; Start 06/26/19 at 01:00 Acetaminophen (Tylenol Tab) 650 mg Q6H PRN PO .PAIN 1-3 OR TEMP; Start 06/26/19 at 01:00 Acetaminophen (Tylenol Supp) 650 mg Q6H PRN SC .PAIN 1-3 OR TEMP; Start 06/26/19 at 01:00 Docusate Sodium (Colace) 100 mg Q12H PRN PO .CONSTIPATION; Start 06/26/19 at 01:00 Enoxaparin Sodium (Lovenox) 40 mg DAILY SC Last administered on 06/28/19 08:59; Admin Dose 40 MG; Start 06/26/19 at 09:00 Pantoprazole (Protonix Tab) 40 mg DAILY@06 PO Last administered on 06/28/19 06:12; Admin Dose 40 MG; Start 06/26/19 at 06:00 Diagnostic Test (Pha) (Accu-Chek) 1 ea 02 XX Last administered on 06/26/19at 02:28; Admin Dose 1 EA; Start 06/26/19 at 02:00 Insulin Aspart (Novolog Insulin Pen) NOVOLOG *MILD* ALGORITHM WITH MEALS B EDTIME SC ; Start 06/26/19 at 08:00 Levofloxacin/ Dextrose 100 ml @ 100 mls/hr Q24H IVPB Last administered on 06/27/19 17:42; Admin Dose 100 MLS/HR; Start 06/26/19 at 18:00 Hydralazine HCl (Apresoline) 10 mg Q6H PRN IV ELEVATED BLOOD PRESSURE Last administered on 06/27/19 11:22; Admin Dose 10 MG; Start 06/27/19 at 10:30 Hydralazine HCl (Apresoline) 50 mg Q8 PO Last administered on 06/28/19at 06:12; Admin Dose 50 MG; Start 06/27/19 at 14:00 MICHELLE SANDERSON MD Jun 28, 2019 10:37
[2019-06-28] MEDS ORDERED: DOPamine-D5W 1.6 MG/ML 250 ML IV SCH (14:30)
[2019-06-28] MEDS: ATORVASTATIN 20 MG TAB PO SCH (20:56)
[2019-06-29] VITALS (24 sets, daily range): BP systolic 120–188; BP diastolic 53–98; PULSE 35–93; RESP 12–34
[2019-06-29] MEDS: ACCU-CHEK XX SCH (02:00)
[2019-06-29] MEDS: PANTOPRAZOLE (EC) 40 MG TAB PO SCH (05:23)
--- NOTE | 2019-06-29 06:27 | CONS ---
DATE OF ADMISSION: 06/26/2019 DATE OF CONSULTATION: 06/28/2019 TYPE OF CONSULTATION: Cardiology. REFERRING PHYSICIAN: Julian Griffiths MD REASON FOR EVALUATION: Symptomatic bradycardia. HISTORY OF PRESENT ILLNESS: Mr. Murdock is a 63-year-old gentleman with history of hypertension, d yslipidemia, history of aortic valve replacement, history of coronary artery disease, [facility] of significant bradycardia with a heart rate in the 30s. The patient has been monitored on telemetry and has intermittent episodes of second degree AV block. Some of it is more c onsistent Wenckebach, but I think it is 1 episode is consistent with Mobitz type 2. The patient has a history of aortic valve replacement which is a known risk factor for conduction and block, and I th ink it would be very reasonable for patient have a pacemaker, had a lengthy discussion with the patie nt and his family, with the help of a larry car operator about the risks, benefits and alternatives of pacema ker placement. The patient appears to be hemodynamically stable at this particular point and he is a greeable to have a pacemaker placed. We will try to facilitate that shortly. PAST MEDICAL HISTORY: Hypertension, dyslipidemia, history of coronary artery disease, history of cor onary artery bypass graft, history of CVA with right-sided residual weakness, history of recurrent u rinary tract infection, history of aortic valve replacement. ALLERGIES: NO KNOWN DRUG ALLERGIES. SOCIAL HISTORY: He smoked. Does not drink, does not use drugs. FAMILY HISTORY: Negative for sudden cardiac , premature coronary artery disease. MEDICATIONS: Include: 1. Hydralazine 50 mg p.o. q. 8 hours. 2. Apresoline 10 mg p.o. once a day. 3. Atorvastatin 20 mg . 4. Aspirin 325 once a day. 4. Docusate 100 mg a day. 5. Famotidine. 6. Hydrochlorothiazide. 7. Subcu Lovenox. 8. Insulin on a sliding scale. 9. Pantoprazole 10. Digoxin. 11. Ibuprofen. 12. Albuterol. 13. Sodium chloride. REVIEW OF SYSTEMS: CONSTITUTIONAL: No fevers, no chills, no recent weight change. HEENT: No changes in vision or hearing. CARDIAC: Chest pain reported now. RESPIRATORY: Shortness of breath. GASTROINTESTINAL: No nausea, vomiting. GENITOURINARY: No . NEUROLOGIC: History of cerebrovascular accident. HEMATOLOGIC: History of fevers, but negative blood cultures and no leukocytosis now. PHYSICAL EXAMINATION: VITAL SIGNS: Temperature is 98.0, heart rate is 85 now, blood pressure 160/91. GENERAL: He is a thin gentleman in no acute distress, alert and oriented x3, aware of his condition. HEAD: Normocephalic, atraumatic. Eyes anicteric. NECK: Supple. JVD 6-7 cm. No lymphadenopathy, no thyromegaly. HEART: Regular, soft holosystolic murmur. PMI is minimally displaced. There is no S3. LUNGS: Coarse to base. ABDOMEN: Distended, bowel sounds present, . EXTREMITIES: edema. He is weak on the right side. LABORATORY DATA: INR is 0.9. White blood cell count 6.7, hemoglobin 11.1, platelets 200. INR is 1. 0, creatinine is 0.83. ASSESSMENT AND PLAN: 1. Bradycardia. Patient's tachycardia or bradycardia is symptomatic. It is consistent with a secon d degree AV block, likely time and likely Mobitz too at times. I think it would be reasonable for patient to have a pacemaker, had a lengthy discussion with the patient about risks, benefits and alternatives of the procedure. We will try to facilitate the pacemaker shortly. Patient is aware of the risks. 2. History of coronary artery disease, no chest pain noted now. Continue to treat as indicated. 3. History of aortic valve replacement, likely contributing to his bradycardia because of the positi on of the valve which is a normal event after the valve replacement. I think it reasonable to follow for now. 4. Urinary tract infection. The patient is treated. He does not have fevers at the moment, I think for now, conservative therapy is to followup. I would like to thank Dr. Geronimo for referring this patient for my evaluation. Dictated By: MICHELLE SANDERSON MD ML/NTS Conf#: [id number] DID#: [id number] CC: JULIAN GRIFFITHS MD;*EndCC*
[2019-06-29] MEDS: INSULIN ASPART [NOVOLOG] 3 ML PEN SC SCH ×4 (07:35→20:23)
[2019-06-29] MEDS: BISACODYL (EC) 5 MG TAB PO SCH ×2 (08:34→20:11)
[2019-06-29] MEDS: DOCUSATE SODIUM 100 MG CAP PO SCH (08:34)
[2019-06-29] MEDS: hydrOXYzine HCL 10 MG TAB PO SCH ×4 (08:34→20:18)
[2019-06-29] MEDS: FAMOTIDINE 20 MG TAB PO SCH (08:34)
[2019-06-29] MEDS: ASPIRIN (EC) 325 MG TAB PO SCH (08:34)
[2019-06-29] MEDS: ENOXAPARIN 40 MG/0.4 ML SYG SC SCH (08:35)
[2019-06-29] MEDS: hydrALAzine 20 MG INJ IV PRN (10:25)
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
[2019-06-29] MEDS: FUROSEMIDE 40 MG TAB PO SCH (11:29)
--- NOTE | 2019-06-29 11:47 | CONS ---
Assessment/Plan Assessment/Plan Hospital Course (Demo Recall) IMP: 1.bradycardia- to 30-40's with sukhjindernmariza, more recently with episode 2:1 AVB. Now in icu. NL TSH. NL EF by echo this admit 2.HTN-uncontrolled 3.HL 4.H/O AVR bioprosthesis 2015 5.H/O Cabg x 1 2015 6. H/O CVA 7. Fevers Recc: -ICU -F/U cx data and continue abx's -continue asa/statin -Contineu hydralazine with slight increase irasema improve BP with possible need to add antihypertensives -For PPM tomorrow with DR dickerson Consultation Date/Type/Reason Admit Date/Time Jun 26, 2019 at 06:42 Initial Consult Date 06/26/19 Type of Consult Cardiology Reason for Consultation cad/bradycardia Requesting Provider: GRAEME VIEIRA MD Date/Time of Note DATE: 06/29/19 TIME: 11:42 Exam/Review of Systems Vital Signs Vitals Vital Signs Date Temp Pulse Resp B/P (MAP) Pulse Ox O2 O2 Flow FiO2 Time Delivery Rate 06/29/19 80 28 188/77 99 Room Air 10:00 (114) 06/29/19 98.5 08:00 06/29/19 18.0 07:00 06/28/19 27 00:30 Intake and Output 06/28/19 06/28/19 06/29/19 1515:00 23:00 07:00 IntakeIntake Total 370 ml 450 ml 150 ml OutputOutput Total 700 ml 1250 ml 375 ml BalanceBalance -330 ml -800 ml -225 ml Exam Exam Review of Systems: CONSTITUTIONAL: No fevers, chills. PULMONARY: No sob CARDIOVASCULAR: No chest pain/palpitations GASTROINTESTINAL: No nausea/vomiting. GENITOURINARY: No hematuria/dysuria. MUSCULOSKELETAL: No myagias/arthalgias. PSYCHIATRIC: The patient denies depression. NEUROLOGIC: No weakness Constitutional: alert Psych: no complaints Head: normocephalic ENMT: mucosa pink and moist Neck: supple, jvd (9 cm water) Respiratory: clear to auscultation Cardiovascular: regular rate and rhythm Gastrointestinal: soft, non-tender Musculoskeletal: muscle tone Extremities: normal pulses (normal) Neurological: other (No focal deficits) Labs Result Diagram: 06/29/19 1039 06/29/19 1039 Results 24hrs Laboratory Tests Test 06/28/19 17:40 06/28/19 21:07 06/29/19 07:54 06/29/19 10:39 Bedside Glucose 202 139 104 White Blood Count 5.9 Red Blood Count 4.25 L Hemoglobin 10.9 L Hematocrit 33.7 L Mean Corpuscular Volume 79.3 L Mean Corpuscular 25.6 L Hemoglobin Mean Corpuscular 32.3 Hemoglobin Concent Red Cell Distribution 17.9 H Width Platelet Count 260 # Mean Platelet Volume 9.9 Immature Granulocytes % 1.500 H Neutrophils % 60.2 Lymphocytes % 22.2 Monocytes % 7.2 Eosinophils % 7.9 H Basophils % 1.0 Nucleated Red Blood 0.0 Cells % Immature Granulocytes # 0.090 H Neutrophils # 3.6 Lymphocytes # 1.3 Monocytes # 0.4 Eosinophils # 0.5 Basophils # 0.1 Nucleated Red Blood 0.0 Cells # Sodium Level 139 Potassium Level 4.1 Chloride Level 109 Carbon Dioxide Level 24 Anion Gap 6 Blood Urea Nitrogen 14 Creatinine 0.79 Est Glomerular Filtrat > 60 Rate mL/min Glucose Level 152 Calcium Level 9.1 Test 06/29/19 11:31 Bedside Glucose 147 Medications Medications Current Medications Acetaminophen (Tylenol Tab) 650 mg Q6H PRN PO MILD PAIN(1-3)OR ELEVATED TEMP; Start 06/26/19 at 01:00 Aspirin (Ecotrin) 325 mg DAILY PO Last administered on 06/29/19 08:34; Admin Dose 325 MG; Start 06/26/19 at 09:00 Atorvastatin Calcium (Lipitor) 20 mg HS PO Last administered on 06/28/19at 20:56; Admin Dose 20 MG; Start 06/26/19 at 21:00 Bisacodyl (Dulcolax) 5 mg BID PO Last administered on 06/27/19 21:06; Admin Dos e 5 MG; Start 06/26/19 at 09:00 Docusate Sodium (Colace) 100 mg DAILY PO Last administered on 06/27/19 08:46; Admin Dose 100 MG; Start 06/26/19 at 09:00 Hydroxyzine HCl (Atarax) 10 mg PC MEALS BEDTIME PO Last administered on 06/29/19at 08:34; Admin Dose 10 MG; Start 06/26/19 at 09:00 Ibuprofen (Motrin) 400 mg Q4 PRN PO PAIN; Start 06/26/19 at 01:00 Albuterol/ Ipratropium (Duoneb) 3 ml Q4H RESP THERAPY PRN HHN SHORTNESS OF BREATH; Start 06/26/19 at 01:00 Oxycodone/ Acetaminophen (Percocet (5/ 325)) 1 tab Q4H PRN PO PAIN; Start 06/26/19 at 01:00 Polyethylene Glycol (Miralax) 8.5 gm DAILY PO Last administered on 06/28/19at 11:54; Admin Dose 8.5 GM; Start 06/26/19 at 09:00 Zolpidem Tartrate (Ambien) 5 mg HS PRN PO INSOMNIA; Start 06/26/19 at 01:00 IV Flush (NS 3 ml) 3 ml PER PROTOCOL IV ; Start 06/26/19 at 01:00 Acetaminophen (Tylenol Tab) 650 mg Q6H PRN PO .PAIN 1-3 OR TEMP; Start 06/26/19 at 01:00 Acetaminophen (Tylenol Supp) 650 mg Q6H PRN NM .PAIN 1-3 OR TEMP; Start 06/26/19 at 01:00 Docusate Sodium (Colace) 100 mg Q12H PRN PO .CONSTIPATION; Start 06/26/19 at 01:00 Enoxaparin Sodium (Lovenox) 40 mg DAILY SC Last administered on 06/29/19at 08:35; Admin Dose 40 MG; Start 06/26/19 at 09:00 Pantoprazole (Protonix Tab) 40 mg DAILY@06 PO Last administered on 06/29/19at 05:23; Admin Dose 40 MG; Start 06/26/19 at 06:00 Diagnostic Test (Pha) (Accu-Chek) 1 ea 02 XX Last administered on 06/26/19at 02:28; Admin Dose 1 EA; Start 06/26/19 at 02:00 Insulin Aspart (Novolog Insulin Pen) NOVOLOG *MILD* ALGORITHM WITH MEALS BEDTIME SC ; Start 06/26/19 at 08:00 Hydralazine HCl (Apresoline) 10 mg Q6H PRN IV ELEVATED BLOOD PRESSURE Last administered on 06/29/19at 10:25; Admin Dose 10 MG; Start 06/27/19 at 10:30 Hydralazine HCl (Apresoline) 50 mg Q8 PO Last administered on 06/29/19at 05:23; Admin Dose 50 MG; Start 06/27/19 at 14:00 Dopamine HCl/ Dextrose 250 ml @ 5.318 mls/ hr TITRATE IV ; Start 06/28/19 at 14:30 Furosemide (Lasix) 40 mg DAILY@06 PO Last administered on 06/29/19at 11:29; Admin Dose 40 MG; Start 06/29/19 at 11:00 JORGE TRIPATHI Jun 29, 2019 11:47
[2019-06-29] MEDS: ATORVASTATIN 20 MG TAB PO SCH (20:09)
[2019-06-29] MEDS: BENAZEPRIL 10 MG TAB PO SCH (20:10)
[2019-06-30] VITALS (21 sets, daily range): BP systolic 116–155; BP diastolic 46–81; PULSE 44–89; RESP 12–30
[2019-06-30] MEDS: ACCU-CHEK XX SCH (02:00)
[2019-06-30] MEDS: FUROSEMIDE 40 MG TAB PO SCH (05:30)
[2019-06-30] MEDS: PANTOPRAZOLE (EC) 40 MG TAB PO SCH (05:31)
[2019-06-30] MEDS ORDERED: IODIXANOL LOCM 50 ML BTL ONE (06:58)
[2019-06-30] MEDS ORDERED: LIDOCAINE 1% (MDV) 20 ML INJ ONE (06:58)
[2019-06-30] MEDS ORDERED: POLYMYXIN/BACITRACIN 1L IRRIG ONE (07:11)
[2019-06-30] MEDS ORDERED: VANCOMYCIN 1 GM (PMX) 250 ML IVPB STA (07:28)
[2019-06-30] MEDS ORDERED: LIDOCAINE 2% (SDV) 5 ML INJ ONE (07:36)
[2019-06-30] MEDS ORDERED: FENTAnyl 50 MCG/ML VIAL ONE (07:36)
[2019-06-30] MEDS ORDERED: PROPOFOL 200 MG INJ ONE (07:36)
[2019-06-30] MEDS ORDERED: MIDAZOLAM 1 MG/ML 2 ML INJ ONE (07:37)
[2019-06-30] MEDS ORDERED: PROPOFOL 40 ML ONE (07:37)
[2019-06-30] MEDS ORDERED: CEFAZOLIN 1 GM/50 ML (PMX) 100 ML IVPB ONE (07:42)
--- NOTE | 2019-06-30 08:03 | PREAC ---
Date/Time of Note Date/Time of Note DATE: 06/30/19 TIME: 07:59 Anesthesia Eval and Record Evaluation Time Pre-Procedure Interview DATE: 06/30/19 TIME: 07:59 Age 63 Sex male NPO: 8 hrs Preoperative diagnosis 2 ed AV block Planned procedure Pacemaker placement Past Medical History Past Medical History: Includes Cardio: HTN, Dyslipidemia Endo: Diabetes Pulm: COPD, Sleep Apnea GI: Morbid obesity Surgery & Anesthesia Issues No known issue Meds Anticoagulation: Yes Beta Nuno within 24 hr: No Reason Beta Nuno not given: Pt. not on B-Nuno Active Scripts Zolpidem Tartrate (Ambien Jovon) 5 Mg Tablet, 5 MG PO HS PRN for INSOMNIA for 28 Days, TAB Prov:TELMA GRIFFITHS MD 11/19/16 Polyethylene Glycol* (Miralax*) 17 Gm Powd.pack, 8.5 GM PO DAILY for 28 Days Prov:TELMA GRIFFITHS MD 11/19/16 Phenol (Sore Throat Porter) 177 Ml Porter, 2 SPRAY MT Q4 PRN for SORE THROAT for 28 Days, SPRAY Prov:TELMA GRIFFITHS MD 11/19/16 Oxycodone Hcl/Acetaminophen (Percocet) 1 Tab Tab, 1 TAB PO Q4H PRN for PAIN for 28 Days, TAB Prov:TELMA GRIFFITHS MD 11/19/16 Na Phos,M-B/Na Phos,Di-Ba (Kym Ready To Use Enema) 133 Ml Enema, 133 ML MI DAILY PRN for CONSTIPATION for 14 Days, ENEMA Prov:TELMA GRIFFITHS MD 11/19/16 Ipratropium-Albuterol (Ipratropium-Albuterol) 0.5-3 Mg/3 Ml Ampul.neb, 3 ML HHN Q4H RESP THERAPY PRN for SHORTNESS OF BREATH for 28 Days Prov:TELMA GRIFFITHS MD 11/19/16 Insulin Glargine* (Lantus*) 100 Unit/Ml Soln, 15 UNIT SC HS for 28 Days Prov:TELMA GRIFFITHS MD 11/19/16 Insulin Aspart* (Novolog Insulin Pen*) 100 Unit/Ml Soln, 4 UNIT SC WITH MEALS for 28 Days Prov:TELMA GRIFFITHS MD 11/19/16 Hydralazine Hcl* (Hydralazine Hcl*) 50 Mg Tab, 50 MG PO Q8 for 30 Days, TAB Prov:TELMA GRIFFITHS MD 11/19/16 Furosemide* (Furosemide*) 40 Mg Tablet, 40 MG PO DAILY@06 for 28 Days, TAB Prov:TELMA GRIFFITHS MD 11/19/16 Famotidine* (Famotidine*) 20 Mg Tablet, 20 MG PO DAILY for 28 Days, TAB Prov:TELMA GRIFFITHS MD 11/19/16 Enoxaparin Sodium* (Enoxaparin Sodium*) 40 Mg/0.4 Ml Syringe, 40 MG SC DAILY for 28 Days Prov:TELMA GRIFFITHS MD 11/19/16 Chlorhexidine Gluconate (Peridex) 473 Ml Mouthwash, 15 ML MT Q12 for 28 Days, BOTTLE Prov:TELMA GRIFFITHS MD 11/19/16 Bisacodyl* (Bisacodyl*) 5 Mg Tablet.dr, 5 MG PO BID for 28 Days Prov:TELMA GRIFFITHS MD 11/19/16 Atorvastatin Calcium (Atorvastatin Calcium) 20 Mg Tablet, 20 MG PO HS for 28 Days, TAB Prov:TELMA GRIFFITHS MD 11/19/16 Aspirin (Aspir-Renée) 325 Mg Tablet.dr, 325 MG PO DAILY for 28 Days Prov:TELMA GRIFFITHS MD 11/19/16 Acetaminophen* (Tylenol*) 325 Mg Tablet, 650 MG PO Q6H PRN for PAIN AND OR ELEVATED TEMP for 7 Days, TAB Prov:TELMA GRIFFITHS MD 11/19/16 Reported Medications Hydroxyzine Hcl* (Atarax*) 25 Mg Tab, 10 MG PO PC MEALS BEDTIME, TAB 11/07/16 Glipizide XL* (Glipizide XL*) 5 Mg Tabsr, 5 MG PO DAILY, TAB 11/07/16 Gabapentin* (Gabapentin*) 100 Mg Capsule, 100 MG PO QHS, #90 CAP 11/07/16 Ibuprofen* (Motrin*) 400 Mg Tab, 400 MG PO Q4 PRN for PAIN, TAB 08/20/15 Docusate Sodium* (Docusate Sodium*) 100 Mg Capsule, 100 MG PO DAILY, CAP 08/20/15 Baclofen* (Baclofen*) 10 Mg Tablet, 10 MG PO DAILY, TAB 08/20/15 Metformin Hcl* (Metformin Hcl*) 1,000 Mg Tablet, 1000 MG PO BID, TAB 08/20/15 Current Medications Acetaminophen (Tylenol Tab) 650 mg Q6H PRN PO MILD PAIN(1-3)OR ELEVATED TEMP; Start 06/26/19 at 01:00 Aspirin (Ecotrin) 325 mg DAILY PO Last administered on 06/29/19 08:34; Admin Dose 325 MG; Start 06/26/19 at 09:00 Atorvastatin Calcium (Lipitor) 20 mg HS PO Last administered on 06/29/19 20:09; Admin Dose 20 MG; Start 06/26/19 at 21:00 Bisacodyl (Dulcolax) 5 mg BID PO Last administered on 06/27/19 21:06; Admin Dose 5 MG; Start 06/26/19 at 09:00 Docusate Sodium (Colace) 100 mg DAILY PO Last administered on 06/27/19 08:46; Admin Dose 100 MG; Start 06/26/19 at 09:00 Hydroxyzine HCl (Atarax) 10 mg PC MEALS BEDTIME PO Last administered on 06/29/19 20:18; Admin Dose 10 MG; Start 06/26/19 at 09:00 Ibuprofen (Motrin) 400 mg Q4 PRN PO PAIN; Start 06/26/19 at 01:00 Albuterol/ Ipratropium (Duoneb) 3 ml Q4H RESP THERAPY PRN HHN SHORTNESS OF BREATH; Start 06/26/19 at 01:00 Oxycodone/ Acetaminophen (Percocet (5/ 325)) 1 tab Q4H PRN PO PAIN; Start 06/26/19 at 01:00 Polyethylene Glycol (Miralax) 8.5 gm DAILY PO Last administered on 06/28/19at 11:54; Admin Dose 8.5 GM; Start 06/26/19 at 09:00 Zolpidem Tartrate (Ambien) 5 mg HS PRN PO INSOMNIA; Start 06/26/19 at 01:00 IV Flush (NS 3 ml) 3 ml PER PROTOCOL IV ; Start 06/26/19 at 01:00 Acetaminophen (Tylenol Tab) 650 mg Q6H PRN PO .PAIN 1-3 OR TEMP; Start 06/26/19 at 01:00 Acetaminophen (Tylenol Supp) 650 mg Q6H PRN [place] .PAIN 1-3 OR TEMP; Start 06/26/19 at 01:00 Docusate Sodium (Colace) 100 mg Q12H PRN PO .CONSTIPATION; Start 06/26/19 at 01:00 Enoxaparin Sodium (Lovenox) 40 mg DAILY SC Last administered on 06/29/19at 08:35; Admin Dose 40 MG; Start 06/26/19 at 09:00 Pantoprazole (Protonix Tab) 40 mg DAILY@06 PO Last administered on 06/29/19at 05:23; Admin Dose 40 MG; Start 06/26/19 at 06:00 Diagnostic Test (Pha) (Accu-Chek) 1 ea 02 XX Last administered on 06/26/19at 02:28; Admin Dose 1 EA; Start 06/26/19 at 02:00 Insulin Aspart (Novolog Insulin Pen) NOVOLOG *MILD* ALGORITHM WITH MEALS BEDTIME SC ; Start 06/26/19 at 08:00 Hydralazine HCl (Apresoline) 10 mg Q6H PRN IV ELEVATED BLOOD PRESSURE Last administered on 06/29/19at 10:25; Admin Dose 10 MG; Start 06/27/19 at 10:30 Dopamine HCl/ Dextrose 250 ml @ 5.318 mls/ hr TITRATE IV ; Start 06/28/19 at 14:30 Furosemide (Lasix) 40 mg DAILY@06 PO Last administered on 06/30/19 05:30; Admin Dose 40 MG; Start 06/29/19 at 11:00 Hydralazine HCl (Apresoline) 75 mg Q8 PO Last administered on 06/30/19 05:31; Admin Dose 75 MG; Start 06/29/19 at 14:00 Benazepril HCl (Lotensin) 10 mg HS PO Last administered on 06/29/19at 20:10; Admin Dose 10 MG; Start 06/29/19 at 21:00 Vancomycin HCl 250 ml @ 125 mls/hr ONCE STAT IVPB ; Start 06/30/19 at 07:28; Stop 06/30/19 at 09:27 Meds reviewed: Yes Allergies Coded Allergies: Penicillins (Verified Allergy, Intermediate, HIVES, 11/07/16) Allergies Reviewed: Yes Labs/Studies Labs Reviewed: Reviewed by anesthesiologist Result Diagram: 06/30/19 0500 06/30/19 0500 Laboratory Tests 06/30/19 05:00 test: N/A Studies: ECG Pre-procedure Exam Last vitals Vital Signs Date Temp Pulse Resp B/P (MAP) Pulse Ox O2 O2 Flow FiO2 Time Delivery Rate 06/30/19 46 19 125/55 Room Air 06:00 (78) 06/30/19 98.4 99 04:00 06/30/19 21 03:37 06/29/19 18.0 07:00 Airway: Adequate mouth opening, Adequate thyromental dist Mallampati: Mallampati III Teeth: Normal Lung: Normal Heart: Normal ASA Physical Status ASA physical status: 3 Emergency: None Planned Anesthetic General/MAC: MAC Planned Pain Management Parenteral pain med, Local by surgeon Pre-operative Attestations Prior to commencing anesthesia and surgery, the patient was re-evaluated, there was verification of: *The patient's identity *The results of appropriate recent lab work and preoperative vital signs *The above evaluation not changing prior to induction *Anesthetic plan, risk benefits, alternative and complications discussed with patient/family; questions answered; patient/family understands, accepts and wishes to proceed. WALTER RAHMAN MD Jun 30, 2019 08:03
--- NOTE | 2019-06-30 08:37 | SIPON ---
Date/Time of Note Date/Time of Note DATE: 06/30/19 TIME: 08:31 Operative Report Preoperative Diagnosis Mobitz II Heart block Postoperative Diagnosis Same Operation/Procedure Performed DDD [employer] pacer 60 bpm set # [id number] Surgeon see signature line railways assistant none Anesthesia: MAC Estimated blood loss: minimal Transfusion Required none Specimen [facility] pacer Grafts/Implants none Complications none MICHELLE SANDERSON MD Jun 30, 2019 08:37
--- NOTE | 2019-06-30 08:52 | PAC ---
Date/Time of Note Date/Time of Note DATE: 06/30/19 TIME: 08:52 Post-Anesthesia Notes Post-Anesthesia Note Last documented vital signs Vital Signs Date Temp Pulse Resp B/P (MAP) Pulse Ox O2 O2 Flow FiO2 Time Delivery Rate 06/30/19 46 19 125/55 Room Air 06:00 (78) 06/30/19 98.4 99 04:00 06/30/19 21 03:37 06/29/19 18.0 07:00 Activity: WNL Respiratory function: WNL Cardiovascular function: WNL Mental status: Baseline Pain reasonably controlled: Yes Hydration appropriate: Yes Nausea/Vomiting absent: Yes Comments BP:117/67, P:74, Spo2:100%, T:98,8 WALTER RAHMAN MD Jun 30, 2019 08:52
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
[2019-06-30] MEDS ORDERED: FENTAnyl 50 MCG/ML VIAL IV PRN (09:00)
[2019-06-30] MEDS ORDERED: METOCLOPRAMIDE 10 MG INJ IV PRN (09:00)
[2019-06-30] MEDS ORDERED: morphine 2 MG INJ IV PRN (09:00)
[2019-06-30] MEDS ORDERED: ONDANSETRON 4 MG INJ IV PRN (09:00)
[2019-06-30] MEDS: BISACODYL (EC) 5 MG TAB PO SCH ×2 (09:00→20:28)
[2019-06-30] MEDS: POLYETHYLENE GLYCOL 17 GM PACKET PO SCH (09:00)
[2019-06-30] MEDS: DOCUSATE SODIUM 100 MG CAP PO SCH (09:00)
[2019-06-30] MEDS: ENOXAPARIN 40 MG/0.4 ML SYG SC SCH (09:00)
[2019-06-30] MEDS ORDERED: DIPHENHYDRAMINE 50 MG INJ IV PRN (09:00)
--- NOTE | 2019-06-30 09:17 | SP ---
DATE OF PROCEDURE: 06/30/2019 REFERRING PHYSICIAN: Dr. Loretta Vieira and Dr. Hui. REASON FOR IMPLANTATION: Symptomatic bradycardia, Mobitz II AV block, reason for dual chamber pacema ker. The patient is with delayed conduction and AV arlyn abnormality. He will benefit from sequenti al pacing in order to optimize hemodynamic status. DEVICE INFORMATION: Implanted device is [employer] Assurity MRI pacemaker 2272, serial #[id number]. Atrial lead is a [employer] Tendril 46 cm [id number] lead, serial number [id number], RV lead is a Tendril 52 cm lead, serial number [id number]. Acute thresholds. Atrial capture 0.75 volts at 0.4 m sec. RV sensing is 1.6 millivolts, lead impedance was 330 ohms. RV threshold 0.5 volts at 0.4 msec, sensing is 12 millivolts. Lead impedance 660 ohms. Initial setting is [id number]. DESCRIPTION OF PROCEDURE: The informed consent was obtained, the patient was brought into heart stat ion in fasting condition. He had REPORTED ALLERGY TO PENICILLIN, but he tolerated Ancef injection we ll. Anesthesiologist supervised airway and sedation. Left side of the chest was prepped and draped in usual sterile fashion, 1% lidocaine was used for local analgesia. Using #10 scalpel, a 5 cm incis ion was made in the left side of the chest. Using cautery and blunt dissection, the pocket was creat ed. Using modified Seldinger technique, subclavian vein was cannulated using modified Seldinger tech nique. Using a split sheath technique, 2 J-wires passed easily. Using a 6-Burkinan sheath as a 8-base , RV lead was advanced to the right RV apex and fixed at the apex. Some slack was left inside the le ad and sheath was peeled away. The lead was sutured to the muscle with multiple layers of 0 Ethibond sutures. Then, in a similar manner, a right atrial lead was positioned into right atrial appendage. It was actively fixed. Sheath was pulled away and the lead was sutured to the muscle layer with 0 Ethibond sutures. There was no diaphragmatic capture at 10 volts. The leads were attached to the Rule. nerator. The pocket was irrigated with antibiotic solution and entire system was placed inside the p ocket. The chest x-ray was done and the skin was closed with multiple layers of 2-0 Vicryl sutures. The patient appears to have tolerated the procedure well. The plan is to have a chest x-ray, contin uous antibiotics and close followup. I would like to thank Dr. Vieira and Dr. Hui for referring this patient for my evaluation. Dictated By: MICHELLE SANDERSON MD ML/NTS Conf#: [id number] DID#: [id number] CC: JORGE HUI MD; LORETTA VIEIRA; TELMA GRIFFITHS MD;*End*
[2019-06-30] MEDS: hydrOXYzine HCL 10 MG TAB PO SCH ×4 (09:30→20:28)
[2019-06-30] MEDS: ASPIRIN (EC) 325 MG TAB PO SCH (09:45)
[2019-06-30] MEDS: INSULIN ASPART [NOVOLOG] 3 ML PEN SC SCH ×4 (09:58→20:25)
--- NOTE | 2019-06-30 10:51 | CONS ---
Assessment/Plan Assessment/Plan Hospital Course (Demo Recall) IMP: 1.bradycardia- to 30-40's with wenkeana maría, more recently with episode 2:1 AVB. Now in icu. NL TSH. NL EF by echo this admit. Now POD#0 s/p PPM implant 2.HTN-uncontrolled 3.HL 4.H/O AVR bioprosthesis 2016 5.H/O Cabg x 1 2015 6. H/O CVA 7. Fevers Recc: -ICU -F/U cx data and continue abx's -continue asa/statin -Contineu hydralazine/benazepril with currently reasonable BP -continue lasix and follow volume status -local wound care to pacer site Consultation Date/Type/Reason Admit Date/Time Jun 26, 2019 at 06:42 Initial Consult Date 06/26/19 Type of Consult Cardiology Reason for Consultation cad/heart block Requesting Provider: GRAEME VIEIRA MD Date/Time of Note DATE: 06/30/19 TIME: 10:44 Exam/Review of Systems Vital Signs Vitals Vital Signs Date Temp Pulse Resp B/P (MAP) Pulse Ox O2 O2 Flow FiO2 Time Delivery Rate 06/30/19 46 19 125/55 Room Air 06:00 (78) 06/30/19 98.4 99 04:00 06/30/19 21 03:37 06/29/19 18.0 07:00 Intake and Output 06/29/19 06/29/19 06/30/19 1515:00 23:00 07:00 IntakeIntake Total 250 ml 150 ml 60 ml OutputOutput Total 1850 ml 1250 ml 390 ml BalanceBalance -1600 ml -1100 ml -330 ml Exam Exam Review of Systems: CONSTITUTIONAL: No fevers, chills. PULMONARY: No sob CARDIOVASCULAR: No chest pain/palpitations GASTROINTESTINAL: No nausea/vomiting. GENITOURINARY: No hematuria/dysuria. MUSCULOSKELETAL: No myagias/arthalgias. PSYCHIATRIC: The patient denies depression. NEUROLOGIC: No weakness Constitutional: alert Psych: no complaints Head: normocephalic ENMT: mucosa pink and moist Neck: supple, jvd (9 cm water) Respiratory: diminished breath sounds Cardiovascular: regular rate and rhythm, other (L chest upper pacer pocket covered by dressing) Gastrointestinal: soft, non-tender Musculoskeletal: muscle tone (normal) Extremities: edema (none) Neurological: other (No focal deficits) Labs Result Diagram: 06/30/19 0500 06/30/19 0500 Results 24hrs Laboratory Tests Test 06/29/19 11:31 06/29/19 17:58 06/29/19 20:22 06/30/19 05:00 Bedside Glucose 147 112 184 White Blood Count 5.8 Red Blood Count 4.59 L Hemoglobin 11.8 L Hematocrit 37.1 L Mean Corpuscular Volume 80.8 L Mean Corpuscular 25.7 L Hemoglobin Mean Corpuscular 31.8 L Hemoglobin Concent Red Cell Distribution 17.9 H Width Platelet Count 290 Mean Platelet Volume 9.9 Immature Granulocytes % 1.600 H Neutrophils % 56.9 Lymphocytes % 21.7 Monocytes % 10.4 Eosinophils % 8.0 H Basophils % 1.4 Nucleated Red Blood 0.0 Cells % Immature Granulocytes # 0.090 H Neutrophils # 3.3 Lymphocytes # 1.3 Monocytes # 0.6 Eosinophils # 0.5 Basophils # 0.1 Nucleated Red Blood 0.0 Cells # Prothrombin Time 14.1 Prothrombin Time Ratio 1.1 INR International 1.08 Normalized Ratio Sodium Level 140 Potassium Level 3.8 Chloride Level 108 Carbon Dioxide Level 27 Anion Gap 5 Blood Urea Nitrogen 14 Creatinine 0.83 Est Glomerular Filtrat > 60 Rate mL/min Glucose Level 132 Calcium Level 9.3 Test 06/30/19 09:58 Bedside Glucose 121 Medications Medications Current Medications Acetaminophen (Tylenol Tab) 650 mg Q6H PRN PO MILD PAIN(1-3)OR ELEVATED TEMP; Start 06/26/19 at 01:00 Aspirin (Ecotrin) 325 mg DAILY PO Last administered on 06/30/19at 09:45; Admin Dose 325 MG; Start 06/26/19 at 09:00 Atorvastatin Calcium (Lipitor) 20 mg HS PO Last administered on 06/29/19at 20:09; Admin Dose 20 MG; Start 06/26/19 at 21:00 Bisacodyl (Dulcolax) 5 mg BID PO Last administered on 06/27/19at 21:06; Admin Do se 5 MG; Start 06/26/19 at 09:00 Docusate Sodium (Colace) 100 mg DAILY PO Last administered on 06/27/19at 08:46; Admin Dose 100 MG; Start 06/26/19 at 09:00 Hydroxyzine HCl (Atarax) 10 mg PC MEALS BEDTIME PO Last administered on 06/29/19at 20:18; Admin Dose 10 MG; Start 06/26/19 at 09:00 Ibuprofen (Motrin) 400 mg Q4 PRN PO PAIN; Start 06/26/19 at 01:00 Albuterol/ Ipratropium (Duoneb) 3 ml Q4H RESP THERAPY PRN HHN SHORTNESS OF BREATH; Start 06/26/19 at 01:00 Oxycodone/ Acetaminophen (Percocet (5/ 325)) 1 tab Q4H PRN PO PAIN; Start 06/26/19 at 01:00 Polyethylene Glycol (Miralax) 8.5 gm DAILY PO Last administered on 06/28/19at 11:54; Admin Dose 8.5 GM; Start 06/26/19 at 09:00 Zolpidem Tartrate (Ambien) 5 mg HS PRN PO INSOMNIA; Start 06/26/19 at 01:00 IV Flush (NS 3 ml) 3 ml PER PROTOCOL IV ; Start 06/26/19 at 01:00 Acetaminophen (Tylenol Tab) 650 mg Q6H PRN PO .PAIN 1-3 OR TEMP; Start 06/26/19 at 01:00 Acetaminophen (Tylenol Supp) 650 mg Q6H PRN [place] .PAIN 1-3 OR TEMP; Start 06/26/19 at 01:00 Docusate Sodium (Colace) 100 mg Q12H PRN PO .CONSTIPATION; Start 06/26/19 at 01:00 Enoxaparin Sodium (Lovenox) 40 mg DAILY SC Last administered on 06/29/19at 08:35; Admin Dose 40 MG; Start 06/26/19 at 09:00 Pantoprazole (Protonix Tab) 40 mg DAILY@06 PO Last administered on 06/29/19at 05:23; Admin Dose 40 MG; Start 06/26/19 at 06:00 Diagnostic Test (Pha) (Accu-Chek) 1 ea 02 XX Last administered on 06/26/19at 02:28; Admin Dose 1 EA; Start 06/26/19 at 02:00 Insulin Aspart (Novolog Insulin Pen) NOVOLOG *MILD* ALGORITHM WITH MEALS BEDTIME SC ; Start 06/26/19 at 08:00 Hydralazine HCl (Apresoline) 10 mg Q6H PRN IV ELEVATED BLOOD PRESSURE Last administered on 06/29/19at 10:25; Admin Dose 10 MG; Start 06/27/19 at 10:30 Dopamine HCl/ Dextrose 250 ml @ 5.318 mls/ hr TITRATE IV ; Start 06/28/19 at 14:30 Furosemide (Lasix) 40 mg DAILY@06 PO Last administered on 06/30/19at 05:30; Admin Dose 40 MG; Start 06/29/19 at 11:00 Hydralazine HCl (Apresoline) 75 mg Q8 PO Last administered on 06/30/19at 05:31; Admin Dose 75 MG; Start 06/29/19 at 14:00 Benazepril HCl (Lotensin) 10 mg HS PO Last administered on 06/29/19at 20:10; Admin Dose 10 MG; Start 06/29/19 at 21:00 Morphine Sulfate (morphine) 1 mg ICU RECOVERY PRN IV .MILD PAIN LEVEL 1-3; Start 06/30/19 at 09:00; Stop 06/30/19 at 13:00 Fentanyl (Sublimaze) 25 mcg ICU RECOVERY PRN IV MILD PAIN LEVEL 1-3; Start 06/30/19 at 09:00; Stop 06/30/19 at 13:00 Ondansetron HCl (Zofran Inj) 4 mg ICU RECOVERY PRN IV NAUSEA/VOMITING; Start 06/30/19 at 09:00; Stop 06/30/19 at 13:00 Metoclopramide HCl (Reglan) 10 mg ICU RECOVERY PRN IV NAUSEA AND/OR VOMITING; Start 06/30/19 at 09:00; Stop 06/30/19 at 13:00 Diphenhydramine HCl (Benadryl) 25 mg ICU RECOVERY PRN IV .PRURITUS; Start 9 at 09:00; Stop 06/30/19 at 13:00 JORGE TRIPATHI Jun 30, 2019 10:51
--- NOTE | 2019-06-30 11:16 | RADRPT ---
Vent Rate: 80 bpm RR Interval: 748 msec NC Interval: 193 msec QRS Duration: 111 msec QT Interval: 402 msec QTC Interval: 465 msec P-R-T [place]: 30 - -67 - 88 degrees Sinus rhythm...normal P axis, V-rate 50- 99 Probable left atrial enlargement...P >50mS, <-0.10mV V1 LVH with IVCD, LAD and secondary repol abnrm...multi-criteria, wQRSd, abnr ST-T Electronically Signed By: Deniz Avila
[2019-06-30] MEDS: ATORVASTATIN 20 MG TAB PO SCH (20:28)
[2019-06-30] MEDS: BENAZEPRIL 10 MG TAB PO SCH (20:28)
[2019-06-30] MEDS: OXYCODONE/ACETAMINOPHEN (5/325) TAB PO PRN (22:05)
[2019-07-01] MEDS: ACCU-CHEK XX SCH (02:00)
[2019-07-01 03:29] VITALS: BP 133/66; PULSE 77; RESP 20
[2019-07-01] MEDS: FUROSEMIDE 40 MG TAB PO SCH (05:52)
[2019-07-01] MEDS: PANTOPRAZOLE (EC) 40 MG TAB PO SCH ×2 (05:52→05:54)
[2019-07-01 07:18] VITALS: BP 135/65; PULSE 87; RESP 18
[2019-07-01] MEDS: INSULIN ASPART [NOVOLOG] 3 ML PEN SC SCH ×3 (07:58→17:11)
[2019-07-01] MEDS: hydrOXYzine HCL 10 MG TAB PO SCH ×2 (08:33→12:21)
[2019-07-01] MEDS: DOCUSATE SODIUM 100 MG CAP PO SCH (08:33)
[2019-07-01] MEDS: POLYETHYLENE GLYCOL 17 GM PACKET PO SCH (08:33)
[2019-07-01] MEDS: BISACODYL (EC) 5 MG TAB PO SCH (08:33)
[2019-07-01] MEDS: ASPIRIN (EC) 325 MG TAB PO SCH (08:34)
--- NOTE | 2019-07-01 10:14 | PDOCDIS ---
Discharge Instructions DIAGNOSIS Discharge Diagnosis heart block sp pacemaker fevers resolved CONDITION [id number] Patient Condition: [id number] Fair HOME CARE INSTRUCTIONS: [id number] Diet Instructions: [id number] Low Fat /Cholesterol ACTIVITY: [id number] Activity Restrictions: [id number] Slowly Increase Activity Rest between Activity Avoid heavy lifting FOLLOW UP/APPOINTMENTS Follow-up Plan keep surgical site clean pacemaker precautions fu cards in 1-2 weeks fu PCP in 1-2 weeks GRAEME VIEIRA MD Jul 01, 2019 10:14
[2019-07-01 11:00] VITALS: BP 144/72; PULSE 88; RESP 19
[2019-07-01] MEDS: OXYCODONE/ACETAMINOPHEN (5/325) TAB PO PRN (11:10)
--- NOTE | 2019-07-01 13:27 | CONS ---
Assessment/Plan Assessment/Plan Hospital Course (Demo Recall) IMP: 1.bradycardia- to 30-40's with wenkeana maría, more recently with episode 2:1 AVB. Now in icu. NL TSH. NL EF by echo this admit. Now POD#0 s/p PPM implant 2.HTN-uncontrolled 3.HL 4.H/O AVR bioprosthesis 2016 5.H/O Cabg x 1 2015 6. H/O CVA 7. Fevers Recc: -ON Tele -F/U cx data and continue abx's -continue asa/statin -Contineu hydralazine/benazepril with currently reasonable BP -continue lasix and follow volume status -local wound care to pacer site -OK for d/c planning from cardiac standpoint. f/u for wound check 10-14 days Consultation Date/Type/Reason Admit Date/Time Jun 26, 2019 at 06:42 Initial Consult Date 06/26/19 Type of Consult Cardiology Reason for Consultation Cardiomyopathy Requesting Provider: GRAEME VIEIRA MD Date/Time of Note DATE: 07/01/19 TIME: 13:25 Exam/Review of Systems Vital Signs Vitals Vital Signs Date Temp Pulse Resp B/P (MAP) Pulse Ox O2 O2 Flow FiO2 Time Delivery Rate 07/01/19 98.0 88 19 144/72 97 11:00 (96) 06/30/19 21 21:42 06/30/19 Room Air 20:00 06/29/19 18.0 07:00 Intake and Output 06/30/19 06/30/19 07/01/19 1515:00 23:00 07:00 IntakeIntake Total 840 ml 720 ml 120 ml OutputOutput Total 695 ml 455 ml 750 ml BalanceBalance 145 ml 265 ml -630 ml Exam Exam Review of Systems: CONSTITUTIONAL: No fevers, chills. PULMONARY: No sob CARDIOVASCULAR: No chest pain/palpitations GASTROINTESTINAL: No nausea/vomiting. GENITOURINARY: No hematuria/dysuria. MUSCULOSKELETAL: No myagias/arthalgias. PSYCHIATRIC: The patient denies depression. NEUROLOGIC: No weakness Constitutional: alert Psych: no complaints Head: normocephalic ENMT: mucosa pink and moist Neck: supple, jvd (9 cm water) Respiratory: diminished breath sounds (at bases/B) Cardiovascular: regular rate and rhythm, other (L upper chest pacer pocket covered by dressing c/d/i) Gastrointestinal: soft, non-tender Musculoskeletal: muscle weakness (mild generalized) Extremities: edema (none) Labs Result Diagram: 06/30/19 0500 06/30/19 0500 Results 24hrs Laboratory Tests Test 06/30/19 13:36 06/30/19 17:47 06/30/19 20:23 07/01/19 07:57 Bedside Glucose 150 146 154 117 Test 07/01/19 11:50 Bedside Glucose 126 Medications Medications Current Medications Acetaminophen (Tylenol Tab) 650 mg Q6H PRN PO MILD PAIN(1-3)OR ELEVATED TEMP; Start 06/26/19 at 01:00 Aspirin (Ecotrin) 325 mg DAILY PO Last administered on 07/01/19 08:34; Admin Dose 325 MG; Start 06/26/19 at 09:00 Atorvastatin Calcium (Lipitor) 20 mg HS PO Last administered on 06/30/19 20:28; Admin Dose 20 MG; Start 06/26/19 at 21:00 Bisacodyl (Dulcolax) 5 mg BID PO Last administered on 06/30/19 20:28; Admin Dose 5 MG; Start 06/26/19 at 09:00 Docusate Sodium (Colace) 100 mg DAILY PO Last administered on 06/27/19 08:46; Admin Dose 100 MG; Start 06/26/19 at 09:00 Hydroxyzine HCl (Atarax) 10 mg PC MEALS BEDTIME PO Last administered on 06/30/19 20:28; Admin Dose 10 MG; Start 06/26/19 at 09:00 Ibuprofen (Motrin) 400 mg Q4 PRN PO PAIN; Start 06/26/19 at 01:00 Albuterol/ Ipratropium (Duoneb) 3 ml Q4H RESP THERAPY PRN HHN SHORTNESS OF BREATH; Start 06/26/19 at 01:00 Oxycodone/ Acetaminophen (Percocet (5/ 325)) 1 tab Q4H PRN PO PAIN Last administered on 07/01/19 11:10; Admin Dose 1 TAB; Start 06/26/19 at 01:00 Polyethylene Glycol (Miralax) 8.5 gm DAILY PO Last administered on 06/28/19 11:54; Admin Dose 8.5 GM; Start 06/26/19 at 09:00 Zolpidem Tartrate (Ambien) 5 mg HS PRN PO INSOMNIA; Start 06/26/19 at 01:00 IV Flush (NS 3 ml) 3 ml PER PROTOCOL IV ; Start 06/26/19 at 01:00 Acetaminophen (Tylenol Tab) 650 mg Q6H PRN PO .PAIN 1-3 OR TEMP; Start 06/26/19 at 01:00 Acetaminophen (Tylenol Supp) 650 mg Q6H PRN [place] .PAIN 1-3 OR TEMP; Start 06/26/19 at 01:00 Docusate Sodium (Colace) 100 mg Q12H PRN PO .CONSTIPATION; Start 06/26/19 at 01:00 Enoxaparin Sodium (Lovenox) 40 mg DAILY SC Last administered on 06/29/19 08:35; Admin Dose 40 MG; Start 06/26/19 at 09:00 Pantoprazole (Protonix Tab) 40 mg DAILY@06 PO Last administered on 06/29/19 05:23; Admin Dose 40 MG; Start 06/26/19 at 06:00 Diagnostic Test (Pha) (Accu-Chek) 1 ea 02 XX Last administered on 06/26/19 02:28; Admin Dose 1 EA; Start 06/26/19 at 02:00 Insulin Aspart (Novolog Insulin Pen) NOVOLOG *MILD* ALGORITHM WITH MEALS BEDT GIAN SC Last administered on 06/30/19 17:54; Admin Dose 1 UNIT; Start 06/26/19 at 08:00 Hydralazine HCl (Apresoline) 10 mg Q6H PRN IV ELEVATED BLOOD PRESSURE Last administered on 06/29/19at 10:25; Admin Dose 10 MG; Start 06/27/19 at 10:30 Furosemide (Lasix) 40 mg DAILY@06 PO Last administered on 07/01/19 05:52; Admin Dose 40 MG; Start 06/29/19 at 11:00 Hydralazine HCl (Apresoline) 75 mg Q8 PO Last administered on 07/01/19 05:52; Admin Dose 75 MG; Start 06/29/19 at 14:00 Benazepril HCl (Lotensin) 10 mg HS PO Last administered on 06/30/19 20:28; Admin Dose 10 MG; Start 06/29/19 at 21:00 JORGE TRIPATHI Jul 01, 2019 13:27
[2019-07-01] MEDS: ENOXAPARIN 40 MG/0.4 ML SYG SC SCH (13:38)
[2019-07-01 15:10] VITALS: BP 137/67; PULSE 67; RESP 18
[2019-07-01] MEDS: hydrALAzine 20 MG INJ IV PRN (17:53)
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
== END 2019-07-01 18:13 | DRG 243 ==
LOC: E/R 19:07 → CANRESERV 23:43 → EDBEDREQSVC 06-26 00:02 → EDBEDREQ 06-26 00:02 → CANRESERV 06-26 06:02 → EDBEDREQ 06-26 06:31 → EDBEDREQSVC 06-26 06:31 → ICU 06-26 06:42 → 6WM 06-30 21:25
PROVIDERS: ADMIT Internal Medicine Nephrology; ATTEND Internal Medicine Nephrology
PROC: 02H63JZ Insertion of Pacemaker Lead into Right Atrium, Percutaneous Approach (ICD-10-PCS; 2019-06-30)
PROC: 02HK3JZ Insertion of Pacemaker Lead into Right Ventricle, Percutaneous Approach (ICD-10-PCS; 2019-06-30)
PROC: 0JH606Z Insertion of Pacemaker, Dual Chamber into Chest Subcutaneous Tissue and Fascia, Open Approach (ICD-10-PCS; principal; 2019-06-30 07:30)
DX: I44.1 Atrioventricular block, second degree (principal); I69.951 Hemiplegia and hemiparesis following unspecified cerebrovascular disease affecting right dominant side; I10 Essential (primary) hypertension; I25.10 Atherosclerotic heart disease of native coronary artery without angina pectoris; E11.9 Type 2 diabetes mellitus without complications; E78.5 Hyperlipidemia, unspecified; D64.9 Anemia, unspecified; J44.9 Chronic obstructive pulmonary disease, unspecified; N39.0 Urinary tract infection, site not specified; R80.9 Proteinuria, unspecified; E87.1 Hypo-osmolality and hyponatremia; Z95.1 Presence of aortocoronary bypass graft; Z95.3 Presence of xenogenic heart valve; Z87.891 Personal history of nicotine dependence; G47.30 Sleep apnea, unspecified; Z74.01 Bed confinement status
CPT/HCPCS: 36415; 71045; 80048; 80053; 81001; 82652; 82962; 83036; 83540; 83605; 84443; 84484; 85025; 85610; 85730; 87081; 87086; 93005; 93306; 96365; 96366; 96368; C1785; C1898; C9113; J0360; J0690; J1650; J1815; J1956; J2250; J3010; J3370; J7030; Q9967